=== PATIENT | female | born 1975 | race Caucasian/White ===

== ENCOUNTER 2017-05-14 17:54 | Emergency (ER) | payer OTHER, SELFPAY ==
[2017-05-14] MEDS ORDERED: BABY ASPIRIN 81 MG CHEW PO ONE (18:15)
[2017-05-14] MEDS ORDERED: Pepcid 20 MG VIAL IV ONE ×2 (18:15→18:38)
[2017-05-14] MEDS ORDERED: Vistaril 50 MG/ML IM ONE (18:17)
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
[2017-05-14 18:35] LABS: BASOPHIL % 0.4 % (0.0-0.4); Basophil (Absolute #) 0.03 (0-0.4); Eosinophil % 1.3 % (0.00-5.0); Granulocyte Absolute (ANC) 4.47 (1.4-6.9); Hematocrit 30.3 % (35-47); Hemoglobin 9.6 gm/dl (12.0-16.0); Lymphocyte (Absolute #) 2.63 (1.0-4.6); Lymphocytes % 34.2 % (24.0-44.0); Mean Cell Volume 81.7 fl (78-100); Mean Corpuscular Hgb Concent. 31.7 g/dl (32-36); Mean Platelet Volume 9.8 fl (6-9.5); Monocyte (Absolute #) 0.47 (0.0-1.3); Monocytes % 6.1 % (0.0-12.0); Platelet Count 384 K/mm3 (150-450); Red Blood Count 3.71 M/mm3 (4.1-5.4); Red Cell Distribution Width 20.8 % (11.5-14.0); White Blood Count 7.7 K/mm3 (4.0-10.5)
[2017-05-14] MEDS ORDERED: BABY ASPIRIN 81 MG CHEW ONE (18:37)
[2017-05-14] MEDS ORDERED: VISTARIL 100MG/2ML IM ONE (18:37)
[2017-05-14 18:46] LABS: Mean Corpuscular Hemoglobin 25.8 pg (26-32)
[2017-05-14 18:57] VITALS: BP 132/79; PULSE 80
[2017-05-14 19:00] VITALS: O2SAT 100
[2017-05-14 19:02] LABS: ALBUMIN 3.8 g/dl (3.5-5.0); ALKALINE PHOSPHATASE 115 U/L (38-126); ANION GAP 14.2 MEQ/L (5-15); BILIRUBIN,TOTAL < 0.10 mg/d? (0.2-1.3); BLOOD UREA NITROGEN 9 mg/dl (7-17); CHLORIDE 105 mEq/L (98-107); Calcium 9.1 mg/dL (8.4-10.2); Carbon Dioxide 24 mmol/L (22-30); Glucose 116 mg/dL (74-106); Potassium 3.7 mmol/L (3.5-5.1); SGOT/AST 21 U/L (14-36); SGPT/ALT 19 U/L (0-35); SODIUM 140 mmol/L (137-145); Total Protein 6.4 mg/dl (6.3-8.2)
--- NOTE | 2017-05-14 21:11 | XRAY ---
Indication: Chest pain. Comparison: May 12, 2015. PA/lateral chest again demonstrates normal heart, lungs, and bony thorax.
== END 2017-05-14 19:26 | disposition home or self-care (01) ==
LOC: ED 17:54
DX: R07.9 Chest pain, unspecified (principal); F41.9 Anxiety disorder, unspecified; Z79.01 Long term (current) use of anticoagulants; Z79.899 Other long term (current) drug therapy
CPT/HCPCS: 36000; 36415; 71046; 80053; 84484; 84703; 85025; 93005; 93041; 96372; 96374; 99283; 99284; J3410; A9270-GY

== ENCOUNTER 2017-06-14 16:34 | Emergency (ER) | payer OTHER ==
[2017-06-14 17:02] VITALS: PULSE 64
[2017-06-14] MEDS ORDERED: DEMEROL 50 MG IM ONE (17:14)
[2017-06-14] MEDS ORDERED: Phenergan 25 MG INJ IM ONE (17:15)
[2017-06-14] MEDS ORDERED: Phenergan 25 MG INJ ONE (17:20)
[2017-06-14] MEDS ORDERED: DEMEROL 50 MG ONE (17:21)
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
[2017-06-14 18:12] VITALS: BP 113/61; O2SAT 96
== END 2017-06-14 17:50 | disposition home or self-care (01) ==
LOC: ED 16:34
DX: G43.909 Migraine, unspecified, not intractable, without status migrainosus (principal); Z79.01 Long term (current) use of anticoagulants; Z79.899 Other long term (current) drug therapy
CPT/HCPCS: 96372; 99282; 99284; J2175; J2550

== ENCOUNTER 2017-11-10 23:51 | Emergency (ER) | payer OTHER ==
[2017-11-11] MEDS ORDERED: PERCOCET TABLET 5/325MG PO STA (00:01)
--- NOTE | 2017-11-11 00:04 | ERPHSYRPT ---
- History of Present Illness Time Seen by Provider: 11/11/17 00:02 Source: patient Exam Limitations: no limitations Physician History: 42 y/o female comes to the ER after jamming her right hand and index finger against the door. Pt describes the pain as sharp, constant, 8/10, worse with movement and not relieved by excedrin. Occurred: just prior to arrival Method of Injury: direct blow Quality: constant Severity of Pain-Max: severe Severity of Pain-Current: severe Extremities Pain Location: hand: right, 2nd finger: right Modifying Factors: Improves With: nothing Associated Symptoms: none Allergies/Adverse Reactions: strawberry [[place]] Allergy (Severe, Verified 11/11/17 00:06) Hives swollen throat hydrocodone bitartrate [From Vicodin] Allergy (Mild, Verified 11/11/17 00:06) Vomiting ketorolac tromethamine [From Toradol] Allergy (Mild, Verified 11/11/17 00:06) Hives Penicillins Allergy (Mild, Verified 11/11/17 00:06) pineapple [Pineapple] Allergy (Mild, Verified 11/11/17 00:06) Diarrhea prochlorperazine edisylate [From Compazine] Allergy (Mild, Verified 11/11/17 00: 06) Diarrhea psychosis sumatriptan [From Imitrex] Allergy (Mild, Verified 11/11/17 00:06) Vomiting tramadol HCl [From Ultram] Allergy (Mild, Verified 11/11/17 00:06) Hives oysters Allergy (Severe, Uncoded 11/11/17 00:06) Hives swollen throat Home Medications: Atorvastatin Calcium [Lipitor 20MG Tablet] 20 mg PO 1800 03/27/13 [History] Clopidogrel Bisulfate 75 mg [PLAVIX 75 MG Tablet] 75 mg PO 1800 03/27/13 [ History] Alprazolam 1 mg PO TID 11/13/13 [History] Gabapentin [Neurontin] 1,200 mg PO QHS 02/17/14 [History] Amitriptyline HCl 100 mg PO 1800 08/16/14 [History] Omeprazole 20 MG [Prilosec 20 mg] 20 mg PO 1800 08/16/14 [History] Hx Tetanus, Diphtheria Vaccination/Date Given: Yes Hx Influenza Vaccination/Date Given: Yes Hx Pneumococcal Vaccination/Date Given: No - Review of Systems Constitutional: No Fever, No Chills Eyes: No Symptoms Ears, Nose, & Throat: No Symptoms Respiratory: No Cough, No Dyspnea Cardiac: No Chest Pain, No Edema, No Syncope Abdominal/Gastrointestinal: No Abdominal Pain, No Nausea, No Vomiting, No Diarrhea Genitourinary Symptoms: No Dysuria Musculoskeletal: Joint Pain, Myalgias, No Back Pain, No Neck Pain Skin: No Rash Neurological: No Dizziness, No Focal Weakness, No Sensory Changes Psychological: No Symptoms Endocrine: No Symptoms All Other Systems: Reviewed and Negative - Past Medical History Pertinent Past Medical History: Yes Neurological History: Migraines ENT History: No Pertinent History Cardiac History: Deep Vein Thrombosis Respiratory History: No Pertinent History Endocrine Medical History: No Pertinent History Musculoskeletal History: No Pertinent History GI Medical History: Other History: No Pertinent History Psycho-Social History: Anxiety, Depression Female Reproductive Disorders: Other Other Medical History: peripheral blockage of the L arm, uterine ablasion, anemia, pt reports possibly had a stroke. Acid reflux. - Past Surgical History Past Surgical History: Yes Neuro Surgical History: No Pertinent History Cardiac: No Pertinent History Respiratory: No Pertinent History Gastrointestinal: Cholecystectomy Genitourinary: No Pertinent History Musculoskeletal: Orthopedic Surgery, Other Female Surgical History: Section, Other Other Surgical History: BLOOD CLOT REMOVAL, ABLATION, left foot surgery - Social History Smoking Status: Current every day smoker How long have you smoked: 27 Exposure to second hand smoke: No Drug Use: none Patient Lives Alone: No - Nursing Vital Signs Nursing Vital Signs: Initial Vital Signs Pulse Rate 88 11/10/17 23:58 Respiratory Rate 18 11/10/17 23:58 O2 Sat by Pulse Oximetry 100 11/10/17 23:58 Pain Scale Pain Intensity 8 - Physical Exam General Appearance: alert Eyes, Ears, Nose, Throat Exam: moist mucous membranes Neck Exam: non-tender, supple Cardiovascular/Respiratory Exam: chest non-tender, normal breath sounds, regular rate/rhythm, no respiratory distress Abdominal Exam: non-tender, No guarding Back Exam: normal inspection, No vertebral tenderness Shoulder Exam: normal inspection, non-tender, no evidence of injury Elbow/Forearm Exam: normal inspection, non-tender, no evidence of injury Wrist Exam: normal inspection, non-tender, no evidence of injury Hand Exam: limited ROM, swelling Neuro/Tendon Exam: normal sensation, normal motor functions Mental Status Exam: alert, oriented x 3, cooperative Skin Exam: normal color, warm, dry - Course Nursing assessment & vital signs reviewed: Yes Ordered Tests: Active Orders 24 hr Category Date Time Status HAND (MINIMUM 3 VIEWS) Stat Exams 11/11/17 00:24 Taken Medication Summary Discontinued Medications Generic Name Dose Route Start Last Admin Trade Name Isaac PRN Reason Stop Dose Admin Oxycodone/Acetaminophen 1 tab 11/11/17 00:01 11/11/17 00:07 Percocet Tablet 5/325mg PO 11/11/17 00:02 1 tab STAT STA Administration Oxycodone/Acetaminophen Confirm 11/11/17 00:06 Percocet Tablet 5/325mg Administered 11/11/17 00:07 Dose 1 tab .ROUTE .STSophiris Bio-MED ONE - Progress Progress: improved Progress Note: 11/11/17 00:35 The hand x ray does not show any fracture/ Pt will be d/c home. - Departure Time of Disposition: 00:35 Departure Disposition: Home Clinical Impression: Hand sprain Qualifiers: Encounter type: initial encounter Laterality: right Qualified Code(s): S63.91XA - Sprain of unspecified part of right wrist and hand, initial encounter Condition: Stable Critical Care Time: No Referrals: PRAVEENA KHAN [Primary Care Provider] - Instructions: Finger Sprain (DC) Additional Instructions: Follow up with your primary care doctor for any additional pain medications.
[2017-11-11] MEDS ORDERED: PERCOCET TABLET 5/325MG ONE (00:06)
[2017-11-11 01:00] VITALS: BP 110/68; PULSE 76; O2SAT 98
--- NOTE | 2017-11-11 07:23 | XRAY ---
Indication: Pain following injury. Comparison: None 3 views of the right hand obtained. No bony, articular, or soft tissue abnormalities.
== END 2017-11-11 00:58 | disposition home or self-care (01) ==
LOC: ED 23:51
DX: S63.91XA Sprain of unspecified part of right wrist and hand, initial encounter (principal); S63.610A Unspecified sprain of right index finger, initial encounter; W22.09XA Striking against other stationary object, initial encounter; Z79.01 Long term (current) use of anticoagulants; Z79.899 Other long term (current) drug therapy
CPT/HCPCS: 73130; 99284; A9270-GY

== ENCOUNTER 2017-11-11 18:11 | Emergency (ER) | payer OTHER ==
[2017-11-11 18:33] VITALS: BP 0/0; PULSE 87; O2SAT 99
--- NOTE | 2017-11-11 18:38 | ERPHSYRPT ---
- History of Present Illness Time Seen by Provider: 11/11/17 18:33 Source: patient Exam Limitations: no limitations Patient Subjective Stated Complaint: states fell off porch at 1030 today.pain to right elbow was seen at this ER yesterday AM for another injury,.. splint on right index finger from previous fall. Triage Nursing Assessment: alert and oriented.. pain in right elbow after fgalling off pirch at 1030 today.. pain and swelling.. pain with movement. noted bruising at the elbow.. + radial pulse present. denies any other injuries. Physician History: 42-year-old white female with history of migraines, DVT, anxiety depression, peripheral blockage of the left arm, anemia, CVA, GERD. Patient arrives with complaint of pain in her right elbow since 10:30 today. She states she fell off her front porch. Patient apparently was seen earlier today at midnight with complaint of pain in her right hand and index finger after jamming it into a door. X-rays of the right hand were negative patient does have a splint placed on her right index finger. Past medical history includes migraines, DVT, anxiety, depression, peripheral blockage of the left arm, uterine ablation, anemia, possible CVA, GERD Past surgical history includes cholecystectomy, orthopedic surgery, , blood clot removal, uterine ablation, left foot surgery Social history includes tobacco use Occurred: this morning (10:30 AM) Method of Injury: fell (fell off her front porch) Quality: aching Severity of Pain-Max: moderate Severity of Pain-Current: mild Extremities Pain Location: elbow: right Modifying Factors: Improves With: nothing Associated Symptoms: none Allergies/Adverse Reactions: strawberry [[place]] Allergy (Severe, Verified 11/11/17 18:36) Hives swollen throat hydrocodone bitartrate [From Vicodin] Allergy (Mild, Verified 11/11/17 18:36) Vomiting ketorolac tromethamine [From Toradol] Allergy (Mild, Verified 11/11/17 18:36) Hives Penicillins Allergy (Mild, Verified 11/11/17 18:36) pineapple [Pineapple] Allergy (Mild, Verified 11/11/17 18:36) Diarrhea prochlorperazine edisylate [From Compazine] Allergy (Mild, Verified 11/11/17 18: 36) Diarrhea psychosis sumatriptan [From Imitrex] Allergy (Mild, Verified 11/11/17 18:36) Vomiting tramadol HCl [From Ultram] Allergy (Mild, Verified 11/11/17 18:36) Hives oysters Allergy (Severe, Uncoded 11/11/17 18:36) Hives swollen throat Home Medications: Atorvastatin Calcium [Lipitor 20MG Tablet] 20 mg PO 1800 03/27/13 [History] Clopidogrel Bisulfate 75 mg [PLAVIX 75 MG Tablet] 75 mg PO 1800 03/27/13 [ History] Alprazolam 1 mg PO TID 11/13/13 [History] Gabapentin [Neurontin] 1,200 mg PO QHS 02/17/14 [History] Amitriptyline HCl 100 mg PO 1800 08/16/14 [History] Omeprazole 20 MG [Prilosec 20 mg] 20 mg PO 1800 08/16/14 [History] Hx Tetanus, Diphtheria Vaccination/Date Given: Yes Hx Influenza Vaccination/Date Given: Yes Hx Pneumococcal Vaccination/Date Given: No - Review of Systems Constitutional: No Fever, No Chills Eyes: No Symptoms Ears, Nose, & Throat: No Symptoms Respiratory: No Cough, No Dyspnea Cardiac: No Chest Pain, No Edema, No Syncope Abdominal/Gastrointestinal: No Abdominal Pain, No Nausea, No Vomiting, No Diarrhea Genitourinary Symptoms: No Dysuria Musculoskeletal: Other (right elbow pain) Skin: No Rash Neurological: No Dizziness, No Focal Weakness, No Sensory Changes Psychological: No Symptoms Endocrine: No Symptoms All Other Systems: Reviewed and Negative - Past Medical History Pertinent Past Medical History: Yes Neurological History: Migraines ENT History: No Pertinent History Cardiac History: Deep Vein Thrombosis Respiratory History: No Pertinent History Endocrine Medical History: No Pertinent History Musculoskeletal History: No Pertinent History GI Medical History: Other History: No Pertinent History Psycho-Social History: Anxiety, Depression Female Reproductive Disorders: Other Other Medical History: peripheral blockage of the L arm, uterine ablasion, anemia, pt reports possibly had a stroke. Acid reflux. - Past Surgical History Past Surgical History: Yes Neuro Surgical History: No Pertinent History Cardiac: No Pertinent History Respiratory: No Pertinent History Gastrointestinal: Cholecystectomy Genitourinary: No Pertinent History Musculoskeletal: Orthopedic Surgery, Other Female Surgical History: Section, Other Other Surgical History: BLOOD CLOT REMOVAL, ABLATION, left foot surgery - Social History Smoking Status: Current every day smoker How long have you smoked: 27 Exposure to second hand smoke: No Drug Use: marijuana Patient Lives Alone: No - Female History Hx Now: No - Nursing Vital Signs Nursing Vital Signs: Initial Vital Signs Temperature 98 F 11/11/17 18:23 Pulse Rate 87 11/11/17 18:23 Respiratory Rate 18 11/11/17 18:23 Blood Pressure 0/0 11/11/17 18:23 O2 Sat by Pulse Oximetry 99 11/11/17 18:23 Pain Scale Pain Intensity 6 - Physical Exam General Appearance: mild distress Eyes, Ears, Nose, Throat Exam: moist mucous membranes Neck Exam: non-tender, supple Cardiovascular/Respiratory Exam: chest non-tender, normal breath sounds, regular rate/rhythm, no respiratory distress Abdominal Exam: non-tender, No guarding Back Exam: normal inspection, No vertebral tenderness Shoulder Exam: normal inspection, non-tender, no evidence of injury, normal ROM Elbow/Forearm Exam: No normal inspection (mild edema right elbow over olecranon tender with palpation over olecranon), No normal ROM (decreased range of motion right elbow secondary to pain) Wrist Exam: normal inspection, non-tender, no evidence of injury, normal ROM Hand Exam: normal inspection, non-tender, no evidence of injury, normal ROM Neuro/Tendon Exam: normal sensation, normal motor functions Mental Status Exam: alert, oriented x 3, cooperative Skin Exam: normal color, warm, dry SpO2 Interpretation: normal (99%) SpO2: 99 Oxygen Delivery: Room Air - Course Nursing assessment & vital signs reviewed: Yes - Radiology Exams Right Elbow X-ray Interpretation: Interpreted by me, Negative, No Fracture, No Subluxation Ordered Tests: Active Orders 24 hr Category Date Time Status Sling Application STAT Care 11/11/17 18:53 Active ELBOW (MINIMUM 3 VIEWS) Stat Exams 11/11/17 18:33 Taken - Progress Progress: improved Progress Note: 11/11/17 18:39 42-year-old white female arrives with complaint of pain in her right elbow she states that she fell around 10:30 AM this morning. Interestingly enough patient apparently had come in at around midnight with complaint of right hand pain x-rays of her right hand were negative she did have a splint placed on her right index finger. I've checked the patient's inspect report I cannot find any current prescriptions however. Hold patient summaries show a history of substance abuse. Will go ahead and obtain an x-ray of the patient's right elbow. 11/11/17 18:57 x-ray right elbow negative fracture negative subluxation. Will place a sling on patient's right arm. Go ahead and give patient Percocet 5/325 #2 tablets to go home. She is to take the 6 hours apart as needed for pain. She can switch to Tylenol thereafter. She is she is to place cold packs on the right elbow 24-48 hours. - Departure Time of Disposition: 18:58 Departure Disposition: Home Clinical Impression: Contusion of right elbow Qualifiers: Encounter type: initial encounter Qualified Code(s): S50.01XA - Contusion of right elbow, initial encounter Condition: Fair Critical Care Time: No Referrals: PRAVEENA KHAN [Primary Care Provider] - Additional Instructions: Return home. Ice to right elbow 24-48 hours. Percocet as directed then switch to Tylenol every 4 hours as needed for pain. You may you wear your sling for 48-72 hours. Longer if pain persists but he will need follow-up with your family doctor. Follow-up with your family doctor if symptoms are worse, no better in 48-72 hours, or persist longer than one week. Return for acute distress or for severe symptoms.
[2017-11-11] MEDS ORDERED: PERCOCET TABLET 5/325MG PO STA (18:56)
[2017-11-11] MEDS ORDERED: PERCOCET TABLET 5/325MG ONE (19:01)
--- NOTE | 2017-11-11 21:42 | XRAY ---
Indication: Pain and limited range of motion following fall. Comparison: October 03, 2011. 3 views of the right elbow obtained. Again no bony, articular, or soft tissue abnormalities.
== END 2017-11-11 19:10 | disposition home or self-care (01) ==
LOC: ED 18:11
DX: S50.01XA Contusion of right elbow, initial encounter (principal); M25.521 Pain in right elbow; W17.89XA Other fall from one level to another, initial encounter; Y92.008 Other place in unspecified non-institutional (private) residence as the place of occurrence of the external cause; Z79.01 Long term (current) use of anticoagulants; Z79.899 Other long term (current) drug therapy
CPT/HCPCS: 73080; 99283; A9270-GY

== ENCOUNTER 2017-12-29 23:27 | Emergency (ER) | payer OTHER ==
[2017-12-29 23:39] VITALS: O2SAT 96
[2017-12-30] MEDS ORDERED: TYLENOL 325 MG PO STA (00:03)
[2017-12-30] MEDS ORDERED: TYLENOL 325 MG ONE (00:05)
[2017-12-30] MEDS ORDERED: Norflex 60 MG/2 ML IM ONE (00:07)
[2017-12-30] MEDS ORDERED: Norflex 60 MG/2 ML ONE (00:11)
--- NOTE | 2017-12-30 00:18 | ERPHSYRPT ---
- History of Present Illness Time Seen by Provider: 12/29/17 23:50 Source: patient Patient Subjective Stated Complaint: Left arm pain Triage Nursing Assessment: Patient brought into ER per EMS and strectcher and transferred over to bed with staff asssit of 2. Patient A+O X 3. Patient states she fell on metal camper steps about 0700. Patient states pain is 10/10 to left arm/shoulder. Patient can bend arm, but can't rotate shoulder. Patient has two faded yellow/light purple bruising to back. Physician History: PATIENT WITH A HISTORY OF DVT QUESTIONABLE TIA, DEPRESSION, STATES AT 7AM THIS MORNING SHE FELL DOWN [employer] STEPS SUSTAINING INJURY TO HER LEFT SHOULDER AND SHOULDER BLADE. DENIES ASSOCIATED HEAD, NECK OR BACK INJURY. Occurred: this morning (AT 7AM) Reason for Fall: tripped Injuries/Pain Location: upper extremity Loss of Consciousness: no loss of consciousness Quality: stabbing, throbbing Severity of Pain-Max: moderate Severity of Pain-Current: moderate Modifying Factors: Improves With: movement Allergies/Adverse Reactions: strawberry [[place]] Allergy (Severe, Verified 12/29/17 23:39) Hives swollen throat hydrocodone bitartrate [From Vicodin] Allergy (Mild, Verified 12/29/17 23:39) Vomiting ketorolac tromethamine [From Toradol] Allergy (Mild, Verified 12/29/17 23:39) Hives Penicillins Allergy (Mild, Verified 12/29/17 23:39) pineapple [Pineapple] Allergy (Mild, Verified 12/29/17 23:39) Diarrhea prochlorperazine edisylate [From Compazine] Allergy (Mild, Verified 12/29/17 23: 39) Diarrhea psychosis sumatriptan [From Imitrex] Allergy (Mild, Verified 12/29/17 23:39) Vomiting tramadol HCl [From Ultram] Allergy (Mild, Verified 12/29/17 23:39) Hives oysters Allergy (Severe, Uncoded 12/29/17 23:39) Hives swollen throat Home Medications: Atorvastatin Calcium [Lipitor 20MG Tablet] 20 mg PO 1800 03/27/13 [History] Clopidogrel Bisulfate 75 mg [PLAVIX 75 MG Tablet] 75 mg PO 1800 03/27/13 [ History] Gabapentin [Neurontin] 1,200 mg PO QHS 02/17/14 [History] Omeprazole 20 MG [Prilosec 20 mg] 20 mg PO 1800 08/16/14 [History] Hx Tetanus, Diphtheria Vaccination/Date Given: Yes Hx Influenza Vaccination/Date Given: Yes Hx Pneumococcal Vaccination/Date Given: No Immunizations Up to Date: No - Review of Systems Constitutional: No Fever, No Chills Eyes: No Symptoms Ears, Nose, & Throat: No Symptoms Respiratory: No Cough, No Dyspnea Cardiac: No Chest Pain, No Edema, No Syncope Abdominal/Gastrointestinal: No Abdominal Pain, No Nausea, No Vomiting, No Diarrhea Genitourinary Symptoms: No Dysuria Musculoskeletal: Injury, Joint Pain, Joint Swelling, No Back Pain, No Neck Pain Skin: No Rash Neurological: No Dizziness, No Focal Weakness, No Sensory Changes Psychological: No Symptoms Endocrine: No Symptoms All Other Systems: Reviewed and Negative - Past Medical History Pertinent Past Medical History: Yes Neurological History: Migraines ENT History: No Pertinent History Cardiac History: Deep Vein Thrombosis Respiratory History: No Pertinent History Endocrine Medical History: No Pertinent History Musculoskeletal History: No Pertinent History GI Medical History: Other History: No Pertinent History Psycho-Social History: Anxiety, Depression Female Reproductive Disorders: Other Other Medical History: peripheral blockage of the L arm, uterine ablasion, anemia, pt reports possibly had a stroke. Acid reflux. - Past Surgical History Past Surgical History: Yes Neuro Surgical History: No Pertinent History Cardiac: No Pertinent History Respiratory: No Pertinent History Gastrointestinal: Cholecystectomy Genitourinary: No Pertinent History Musculoskeletal: Orthopedic Surgery, Other Female Surgical History: Section, Other Other Surgical History: BLOOD CLOT REMOVAL, ABLATION, left foot surgery - Social History Smoking Status: Current every day smoker How long have you smoked: 27 Exposure to second hand smoke: No Drug Use: marijuana Patient Lives Alone: No - Female History Hx Last Menstrual Period: 9 years ago Hx Now: No - Nursing Vital Signs Nursing Vital Signs: Initial Vital Signs Temperature 98.8 F 12/29/17 23:31 Pulse Rate 108 H 12/29/17 23:31 Respiratory Rate 18 12/29/17 23:31 Blood Pressure 121/74 12/29/17 23:31 O2 Sat by Pulse Oximetry 96 12/29/17 23:31 Pain Scale Pain Intensity 10 - Ora Coma Score Best Eye Response (Ora): (4) open spontaneously Best Verbal Response ([place]): (5) oriented Best Motor Response ([place]): (6) obeys commands Ora Total: 15 - Physical Exam General Appearance: mild distress Head Injury: no evidence of injury Eye Exam: PERRL/EOMI ENT Exam: airway nml Neck Exam: supple, trachea midline, full range of motion, other (NO POST CERVICAL SPINAL TENDERNESS) Respiratory/Chest Exam: normal breath sounds, other (THERE IS AN AREA MEASURING 4CM X 5CM YELLOW ECCHYMOSIS OVER LEFT POSTERIOR CHEST WALL 6TH TO 9TH RIBS, NO CREPITUS) Cardiovascular Exam: normal heart sounds, regular rate/rhythm Back Exam: normal inspection, vertebral tenderness (TENDERNESS T-2 TO T-8,), decreased range of motion Extremity Exam: normal inspection, limited range of motion (LEFT SHOULDER ANTERIOR LATERAL TENDERNESS, NO ECCHYMOSIS OR CREPITUS, TENDERNESS MID LEFT SCAPULA, NO CREPITUS OR ECCHYMOSIS), pain with movement Peripheral Pulses: carotid (R): 2+, carotid (L): 2+, femoral (R): 2+, femoral (L ): 2+, dorsalis-pedis (R): 2+, dorsalis-pedis (L): 2+ Neurologic Exam: alert, normal mood/affect Skin Exam: normal color SpO2: 96 Oxygen Delivery: Room Air - Radiology Exams Left Shoulder X-ray Interpretation: Interpreted by me, Negative, No Fracture (NO DISLOCATION) T-Spine X-ray Interpretation: Interpreted by me, Negative, No Fracture Chest X-ray Interpretation: Interpreted by me, Negative, No Infiltrates Ordered Tests: Active Orders 24 hr Category Date Time Status Sling Application STAT Care 12/30/17 00:08 Active CHEST 2 VIEWS (PA AND LAT) Stat Exams 12/30/17 00:05 Taken SHOULDER Stat Exams 12/30/17 00:04 Taken THORACIC SPINE (AP,LAT,SWIMM) Stat Exams 12/30/17 00:06 Taken Medication Summary Discontinued Medications Generic Name Dose Route Start Last Admin Trade Name Freq PRN Reason Stop Dose Admin Acetaminophen 650 mg 12/30/17 00:03 12/30/17 00:06 Tylenol 325 Mg PO 12/30/17 00:04 650 mg STAT STA Administration Acetaminophen Confirm 12/30/17 00:05 Tylenol 325 Mg Administered 12/30/17 00:06 Dose 650 mg .ROUTE .STK-MED ONE Orphenadrine Citrate 60 mg 12/30/17 00:07 12/30/17 00:11 Norflex 60 Mg/2 Ml IM 12/30/17 00:08 60 mg STAT ONE Administration Orphenadrine Citrate Confirm 12/30/17 00:11 Norflex 60 Mg/2 Ml Administered 12/30/17 00:12 Dose 60 mg .ROUTE .STK-MED ONE - Progress Progress: improved, pain not gone completely Progress Note: 12/30/17 00:23 PATIENT HAS MULTIPLE ALLERGIES, ADMINISTERED TYLENOL 650MG ORALLY, NORFLEX 60MG IM 12/30/17 01:30 APPLICATION LEFT ARM SLING Counseled pt/family regarding: diagnosis, need for follow-up - Departure Time of Disposition: 01:45 Departure Disposition: Home Clinical Impression: LEFT SHOULDER CONTUSION/STRAIN, ACUTE LUMBAR STRAIN Condition: Stable Critical Care Time: No Referrals: PRAVEENA KHAN [Primary Care Provider] - Additional Instructions: WEAR YOUR LEFT ARM SLING FOR COMFORT. PERCOGESIC 1 TABLET EVERY 4 HOURS NEEDED FOR PAIN. NORFLEX 100MG TWICE DAILY FOR 5 DAYS FOR MUSCLE SPASMS. FOLLOWUP WITH DR KHAN EARLY NEXT WEEK. Prescriptions: Acetaminophen/Diphenhydramine [Percogesic Extra Str Caplet] 1 each PO Q6HPRN PRN #20 tablet PRN Reason: Pain Orphenadrine Citrate 100 mg [Norflex 100 MG Tablet] 100 mg PO BID #10 tab
[2017-12-30 00:21] VITALS: BP 113/63; PULSE 63
--- NOTE | 2017-12-30 08:45 | XRAY ---
Indication: Upper back pain and bruising following fall. Comparison: None. Frontal/lateral thoracic spine demonstrates 12 typical rib-bearing thoracic vertebral segments in normal alignment with vertebral body heights and disc spaces maintained. No bony, articular, or soft tissue abnormalities.
--- NOTE | 2017-12-30 08:45 | XRAY ---
Indication: Upper back pain and bruising following fall. Comparison: May 14, 2017. PA/lateral chest again demonstrates normal heart, lungs, and bony thorax.
--- NOTE | 2017-12-30 08:45 | XRAY ---
Indication: Upper back pain and bruising following fall. Comparison: None. 3 views of the left shoulder obtained. No bony, articular, or soft tissue abnormalities.
== END 2017-12-30 01:35 | disposition home or self-care (01) ==
LOC: ED 23:27
DX: S46.912A Strain of unspecified muscle, fascia and tendon at shoulder and upper arm level, left arm, initial encounter (principal); S40.012A Contusion of left shoulder, initial encounter; S39.012A Strain of muscle, fascia and tendon of lower back, initial encounter; S20.222A Contusion of left back wall of thorax, initial encounter; W10.9XXA Fall (on) (from) unspecified stairs and steps, initial encounter; Y93.9 Activity, unspecified; Y92.833 Campsite as the place of occurrence of the external cause; Z79.01 Long term (current) use of anticoagulants; Z79.899 Other long term (current) drug therapy
CPT/HCPCS: 71046; 72072; 73030; 96372; 99284; J2360; A9270-GY

== ENCOUNTER 2019-05-03 11:44 | Emergency (ER) | payer OTHER ==
--- NOTE | 2019-05-03 11:53 | ERPHSYRPT ---
- History of Present Illness Time Seen by Provider: 05/03/19 11:53 Source: patient Exam Limitations: no limitations Physician History: This is a 43-year-old right handed white female who presents 1 day after injuring her left hand. Patient was moving firewood into a stove and the left hand was mildly crushed between 2 logs. The patient noticed bruising and swelling today with associated pain. Patient specifically told to nurses that she did not want any pain medicine at all just wanted x-ray and possible wrapping of hand if indicated. Occurred: yesterday Method of Injury: direct blow Quality: constant, aching Severity of Pain-Max: mild Severity of Pain-Current: mild Extremities Pain Location: hand: left Associated Symptoms: none Allergies/Adverse Reactions: strawberry [[place]] Allergy (Severe, Verified 05/03/19 11:58) Hives swollen throat hydrocodone bitartrate [From Vicodin] Allergy (Mild, Verified 05/03/19 11:58) Vomiting ketorolac tromethamine [From Toradol] Allergy (Mild, Verified 05/03/19 11:58) Hives Penicillins Allergy (Mild, Verified 05/03/19 11:58) pineapple [Pineapple] Allergy (Mild, Verified 05/03/19 11:58) Diarrhea prochlorperazine edisylate [From Compazine] Allergy (Mild, Verified 05/03/19 11: 58) Diarrhea psychosis sumatriptan [From Imitrex] Allergy (Mild, Verified 05/03/19 11:58) Vomiting tramadol HCl [From Ultram] Allergy (Mild, Verified 05/03/19 11:58) Hives oysters Allergy (Severe, Uncoded 05/03/19 11:58) Hives swollen throat Home Medications: No Reportable Medications [No Reported Medications] 05/03/19 [History] Hx Tetanus, Diphtheria Vaccination/Date Given: Yes Hx Influenza Vaccination/Date Given: Yes Hx Pneumococcal Vaccination/Date Given: No - Review of Systems Constitutional: No Symptoms Eyes: No Symptoms Ears, Nose, & Throat: No Symptoms Respiratory: No Symptoms Cardiac: No Symptoms Abdominal/Gastrointestinal: No Symptoms Genitourinary Symptoms: No Symptoms Musculoskeletal: Injury (Left hand) Skin: No Symptoms Neurological: No Symptoms Psychological: No Symptoms Endocrine: No Symptoms Hematologic/Lymphatic: No Symptoms Immunological/Allergic: No Symptoms All Other Systems: Reviewed and Negative - Past Medical History Pertinent Past Medical History: Yes Neurological History: Migraines ENT History: No Pertinent History Cardiac History: Deep Vein Thrombosis Respiratory History: No Pertinent History Endocrine Medical History: No Pertinent History Musculoskeletal History: No Pertinent History GI Medical History: Other History: No Pertinent History Psycho-Social History: Anxiety, Depression Female Reproductive Disorders: Other Other Medical History: peripheral blockage of the L arm, uterine ablasion, anemia, pt reports possibly had a stroke. Acid reflux. - Past Surgical History Past Surgical History: Yes Neuro Surgical History: No Pertinent History Cardiac: No Pertinent History Respiratory: No Pertinent History Gastrointestinal: Cholecystectomy Genitourinary: No Pertinent History Musculoskeletal: Orthopedic Surgery, Other Female Surgical History: Section, Other Other Surgical History: BLOOD CLOT REMOVAL, ABLATION, left foot surgery - Social History Smoking Status: Current every day smoker How long have you smoked: 27 Exposure to second hand smoke: No Drug Use: marijuana Patient Lives Alone: No - Nursing Vital Signs Nursing Vital Signs: Initial Vital Signs Temperature 98.0 F 05/03/19 11:47 Pulse Rate 70 05/03/19 11:47 Respiratory Rate 20 05/03/19 11:47 Blood Pressure 108/66 05/03/19 11:47 O2 Sat by Pulse Oximetry 100 05/03/19 11:47 Pain Scale Pain Intensity 8 - Physical Exam General Appearance: no apparent distress, alert, anxiety Eyes, Ears, Nose, Throat Exam: normal ENT inspection, moist mucous membranes Neck Exam: normal inspection, non-tender, supple, full range of motion Cardiovascular/Respiratory Exam: chest non-tender Abdominal Exam: non-tender Back Exam: normal inspection, normal range of motion, No CVA tenderness, No vertebral tenderness Shoulder Exam: normal inspection, non-tender, no evidence of injury, normal ROM Elbow/Forearm Exam: normal inspection, non-tender, no evidence of injury, normal ROM Wrist Exam: normal inspection, non-tender, no evidence of injury, normal ROM Hand Exam: normal ROM, ecchymosis, soft tissue tenderness, swelling (There is mild ecchymosis, soft tissue tenderness and swelling in the area of the patient' s left thumb and thenar eminence. Patient is neurovascularly intact and her tendon function is also intact) Neuro/Tendon Exam: normal sensation, normal motor functions, normal tendon functions, responds to pain, no evidence tendon injury Mental Status Exam: alert, oriented x 3, cooperative Skin Exam: ecchymosis SpO2 Interpretation: normal O2 Delivery: Room Air Ordered Tests: Active Orders 24 hr Category Date Time Status HAND (MINIMUM 3 VIEWS) Stat Exams 05/03/19 11:54 Taken - Progress Progress: unchanged Progress Note: 05/03/19 12:45 X-ray of left hand reveals no acute fracture or dislocation Counseled pt/family regarding: diagnosis, need for follow-up, rad results - Departure Departure Disposition: Home Clinical Impression: Contusion of left hand Condition: Stable Critical Care Time: No Referrals: PRAVEENA KHAN [Primary Care Provider] - Additional Instructions: Place left hand into ice bath 3 times a day. Use Tylenol and ibuprofen (if you can tolerate and are not allergic to). Follow-up with your primary care physician for persistent symptoms
[2019-05-03 11:57] VITALS: PULSE 70; O2SAT 100
--- NOTE | 2019-05-03 12:49 | XRAY ---
Exam: 3 views of the left hand from 05/03/2019. Comparison: 3 views of the opposite right hand from 11/11/2017. Indication: Crush injury between longus. Findings: AP, oblique, and lateral radiographs of the left hand were obtained. I see no acute fracture or dislocation. There is some mild bony overlap of the fourth and fifth fingers on the lateral image. There is some soft tissue prominence overlying the ulnar aspect of the PIP joint of the left fourth finger, and to a lesser extent, the same site within the left third finger. No radiopaque soft tissue foreign body is seen. The joint spaces appear unremarkable. A tiny intraosseous cyst is seen within the ulnar aspect of the lesser multangular bone on AP image. This is incidental. Impression: 1. No acute left hand fracture or dislocation is seen. 2. I note some soft tissue prominence about the ulnar aspect of the PIP joint of the left fourth finger, and to a lesser extent, the same level within the left third finger. No radiopaque soft tissue foreign body is seen. Correlate clinically.
[2019-05-03 12:52] VITALS: BP 107/73
== END 2019-05-03 13:03 | disposition home or self-care (01) ==
LOC: ED 11:44
DX: S60.222A Contusion of left hand, initial encounter (principal); W23.1XXA Caught, crushed, jammed, or pinched between stationary objects, initial encounter; W22.8XXA Striking against or struck by other objects, initial encounter; Y93.89 Activity, other specified; Y92.89 Other specified places as the place of occurrence of the external cause; F41.9 Anxiety disorder, unspecified
CPT/HCPCS: 73130; 99283

== ENCOUNTER 2019-05-09 19:48 | Emergency (ER) | payer OTHER ==
[2019-05-09 20:15] VITALS: O2SAT 99
[2019-05-09] MEDS ORDERED: ZOFRAN ODT 4 MG ONE (20:32)
[2019-05-09] MEDS ORDERED: PHENERGAN 25 MG ONE (20:34)
[2019-05-09] MEDS: ZOFRAN ODT 4 MG PO ONE (20:38)
[2019-05-09] MEDS: PHENERGAN 25 MG PO ONE (20:40)
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
[2019-05-09] MEDS ORDERED: BACIGUENT PACKET ONE (21:06)
[2019-05-09] MEDS ORDERED: Hydromorphone 1 mg/ml Ampule ONE (21:07)
[2019-05-09] MEDS: Hydromorphone 1 mg/ml Ampule IM ONE (21:09)
[2019-05-09] MEDS: BACIGUENT PACKET TP ONE (21:17)
[2019-05-09 21:28] VITALS: BP 114/64; PULSE 87
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
== END 2019-05-09 21:20 | disposition home or self-care (01) ==
LOC: ED 19:48
DX: S00.83XA Contusion of other part of head, initial encounter (principal); W20.8XXA Other cause of strike by thrown, projected or falling object, initial encounter; G43.901 Migraine, unspecified, not intractable, with status migrainosus; R11.2 Nausea with vomiting, unspecified
CPT/HCPCS: 70450; 96372; 99284; J1170; Q0162; A9270-GY

== ENCOUNTER 2019-12-22 18:22 | Emergency (ER) | payer OTHER ==
[2019-12-22 18:40] VITALS: BP 101/51; PULSE 92; O2SAT 98
[2019-12-22] MEDS ORDERED: Rocephin 1000 MG INJ IM ONE (18:50)
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
[2019-12-22] MEDS ORDERED: Phenergan 25 MG INJ IM ONE (18:56)
[2019-12-22] MEDS ORDERED: Rocephin 1000 MG INJ ONE (19:03)
[2019-12-22] MEDS ORDERED: XYLOCAINE 1% HCL 20 ML MDV ONE (19:03)
[2019-12-22] MEDS ORDERED: Phenergan 25 MG INJ ONE (19:03)
== END 2019-12-22 19:28 | disposition home or self-care (01) ==
LOC: ED 18:22
DX: H65.112 Acute and subacute allergic otitis media (mucoid) (sanguinous) (serous), left ear (principal)
CPT/HCPCS: 96372; 99284; J0696; J2550

== ENCOUNTER 2020-01-21 23:13 | Emergency (ER) | payer OTHER ==
[2020-01-21] MEDS ORDERED: Sodium Chloride 0.9% 1000 ML 1,000 ML IV STA (23:15)
[2020-01-21 23:17] VITALS: O2SAT 100
[2020-01-21] MEDS ORDERED: Inapsine 5 MG/2 ML IV ONE (23:25)
--- NOTE | 2020-01-21 23:33 | ERPHSYRPT ---
- History of Present Illness Time Seen by Provider: 01/21/20 23:20 Source: patient Patient Subjective Stated Complaint: pt c/o RUQ pain, non radiating Triage Nursing Assessment: pt c/o RUQ pain, non radiating, denies tenderness on palpation. Pt does not have a gallbladder but does still have appendix. Abd soft with active bs x4 quad, nontender. Physician History: Patient is a 44-year-old female presents to our ED with complaints of right up per quadrant pain. Pain started at approximately 10 PM this evening. Patient has a history of cholecystectomy. Patient denies trauma. No fever. No nausea or vomiting. No diarrhea. Symptoms are mild to moderate in intensity. No specific worsening or improving factors. Patient took a Tylenol with codeine prior to arrival and states that it has not helped her pain. Patient has multiple medicine allergies including Carl[place] and narcotics. Patient is also allergic to NSAIDs. Patient voices no other complaints or concerns at this time. Timing/Duration: today Severity: moderate Modifying Factors: Improves With: nothing. Worsens With: eating, movement Associated Symptoms: denies symptoms, No shortness of breath, No diaphoresis, No chest pain, No headaches, No syncope, No seizure Allergies/Adverse Reactions: strawberry [Anderson] Allergy (Severe, Verified 01/21/20 23:25) Hives swollen throat hydrocodone bitartrate [From Vicodin] Allergy (Mild, Verified 01/21/20 23:25) Vomiting ketorolac tromethamine [From Toradol] Allergy (Mild, Verified 01/21/20 23:25) Hives Penicillins Allergy (Mild, Verified 01/21/20 23:25) pineapple [Pineapple] Allergy (Mild, Verified 01/21/20 23:25) Diarrhea prochlorperazine edisylate [From Compazine] Allergy (Mild, Verified 01/21/20 23:25) Diarrhea psychosis sumatriptan [From Imitrex] Allergy (Mild, Verified 01/21/20 23:25) Vomiting tramadol HCl [From Ultram] Allergy (Mild, Verified 01/21/20 23:25) Hives oysters Allergy (Severe, Uncoded 01/21/20 23:25) Hives swollen throat Home Medications: No Reportable Medications [No Reported Medications] 01/21/20 [History] Hx Tetanus, Diphtheria Vaccination/Date Given: Yes Hx Influenza Vaccination/Date Given: No Hx Pneumococcal Vaccination/Date Given: No Immunizations Up to Date: Yes Travel Risk - International Travel Have you traveled outside of the country in past 3 weeks: No - Coronavirus Screening Are you exhibiting any of the following symptoms?: Yes Symptoms: Vomiting/Diarrhea Close contact with a COVID-19 positive Pt in past 14-21 Days: No - Review of Systems Constitutional: No Symptoms, No Fever, No Chills Eyes: No Symptoms Ears, Nose, & Throat: No Symptoms Respiratory: No Symptoms, No Cough, No Dyspnea Cardiac: No Symptoms, No Chest Pain, No Edema, No Syncope Abdominal/Gastrointestinal: No Symptoms, No Abdominal Pain, No Nausea, No Vomiting, No Diarrhea Genitourinary Symptoms: No Symptoms, No Dysuria Musculoskeletal: No Symptoms, No Back Pain, No Neck Pain Skin: No Symptoms, No Rash Neurological: No Symptoms, No Dizziness, No Focal Weakness, No Sensory Changes Psychological: No Symptoms Endocrine: No Symptoms Hematologic/Lymphatic: No Symptoms Immunological/Allergic: No Symptoms All Other Systems: Reviewed and Negative - Past Medical History Pertinent Past Medical History: Yes Neurological History: Migraines ENT History: No Pertinent History Cardiac History: Deep Vein Thrombosis Respiratory History: No Pertinent History Endocrine Medical History: No Pertinent History Musculoskeletal History: No Pertinent History GI Medical History: GERD, Other History: No Pertinent History Psycho-Social History: Anxiety, Depression Female Reproductive Disorders: Other Other Medical History: peripheral blockage of the L arm, uterine ablasion, anemia, pt reports possibly had a stroke. Acid reflux. - Past Surgical History Past Surgical History: Yes Neuro Surgical History: No Pertinent History Cardiac: No Pertinent History Respiratory: No Pertinent History Gastrointestinal: Cholecystectomy Genitourinary: No Pertinent History Musculoskeletal: Orthopedic Surgery, Other Female Surgical History: Section, Other Other Surgical History: BLOOD CLOT REMOVAL, ABLATION, left foot surgery - Social History Smoking Status: Current every day smoker How long have you smoked: 31 yrs Exposure to second hand smoke: Yes Drug Use: marijuana Patient Lives Alone: No - Female History Hx Now: No - Nursing Vital Signs Nursing Vital Signs: Initial Vital Signs Temperature 98.4 F 01/21/20 23:15 Pulse Rate 60 01/21/20 23:15 Respiratory Rate 18 01/21/20 23:15 Blood Pressure 94/47 01/21/20 23:15 O2 Sat by Pulse Oximetry 100 11/17/20 23:15 Pain Scale Pain Intensity 6 - Physical Exam General Appearance: no apparent distress, alert Eye Exam: PERRL/EOMI, eyes nml inspection Ears, Nose, Throat Exam: normal ENT inspection, TMs normal, pharynx normal, moist mucous membranes Neck Exam: normal inspection, non-tender, supple, full range of motion Respiratory Exam: normal breath sounds, lungs clear, No respiratory distress Cardiovascular Exam: regular rate/rhythm, normal heart sounds, normal peripheral pulses Gastrointestinal/Abdomen Exam: soft, normal bowel sounds, tenderness, other (Tenderness to palpation right upper quadrant. No signs of trauma. No signs of cellulitis erythema infection), No mass Back Exam: normal inspection, normal range of motion, No CVA tenderness, No vertebral tenderness Extremity Exam: normal inspection, normal range of motion, pelvis stable Neurologic Exam: alert, oriented x 3, cooperative, normal mood/affect, nml cerebellar function, nml station & gait, sensation nml, No motor deficits Skin Exam: normal color, warm, dry, No rash Lymphatic Exam: No adenopathy SpO2 Interpretation: normal SpO2: 100 O2 Delivery: Room Air - Course Nursing assessment & vital signs reviewed: Yes - CT Exams Abdomen/Pelvis CT Interpretation: Tele-radiologist Report (Negative for acute inflammatory process of the abdomen or pelvis. Evidence of cholecystectomy. Constipation.) Ordered Tests: Active Orders 24 hr Category Date Time Status EKG-ER Only STAT Care 01/21/20 23:15 Active IV Insertion STAT Care 01/21/20 23:15 Active ABDOMEN AND PELVIS W/0 CONTRAS [CT] Stat Exams 01/21/20 00:04 Taken CBC W DIFF Stat Lab 01/21/20 23:58 Completed CMP Stat Lab 01/21/20 23:58 Completed LIPASE Stat Lab 01/21/20 23:58 Completed TROPONIN Q3H Lab 01/21/20 00:00 Received TROPONIN Q3H Lab 01/22/20 02:15 Ordered TROPONIN Q3H Lab 01/22/20 05:15 Ordered TROPONIN Q3H Lab 01/22/20 08:15 Ordered TROPONIN Q3H Lab 01/22/20 11:15 Ordered UA W/RFX UR CULTURE Stat Lab 01/21/20 23:15 Ordered Medication Summary Discontinued Medications Generic Name Dose Route Start Last Admin Trade Name Freq PRN Reason Stop Dose Admin Droperidol 5 mg 01/21/20 23:25 01/21/20 23:55 Inapsine 5 Mg/2 Ml IV 01/21/20 23:26 5 mg STAT ONE Administration Droperidol Confirm 01/21/20 23:53 Inapsine 5 Mg/2 Ml Administered 01/21/20 23:54 Dose 5 mg .ROUTE .STK-MED ONE Sodium Chloride 1,000 mls @ 999 mls/hr 01/21/20 23:15 Sodium Chloride 0.9% 1000 Ml IV 01/22/20 00:15 .Q1H1M STA Lab/Rad Data: Laboratory Result Diagrams 01/21/20 23:58 01/21/20 23:58 Laboratory Results 01/21/20 01/21/20 Range/Units 23:58 23:58 WBC 13.7 H (4.0-10.5) K/mm3 RBC 4.19 (4.1-5.4) M/mm3 Hgb 13.1 (12.0-16.0) gm/dl Hct 38.5 (35-47) % MCV 91.9 (78-100) fl MCH 31.3 (26-32) pg MCHC 34.0 (32-36) g/dl RDW 14.4 H (11.5-14.0) % Plt Count 307 (150-450) K/mm3 MPV 10.3 (7.5-11.0) fl Gran % 75.2 H (36.0-66.0) % Eos # (Auto) 0.02 (0-0.5) Absolute Lymphs (auto) 2.56 (1.0-4.6) Absolute Monos (auto) 0.82 (0.0-1.3) Lymphocytes % 18.6 L (24.0-44.0) % Monocytes % 6.0 (0.0-12.0) % Eosinophils % 0.1 (0.00-5.0) % Basophils % 0.1 (0.0-0.4) % Absolute Granulocytes 10.33 H (1.4-6.9) Basophils # 0.01 (0-0.4) Sodium 133 L (137-145) mmol/L Potassium 4.8 (3.5-5.1) mmol/L Chloride 106 (98-107) mmol/L Carbon Dioxide 24 (22-30) mmol/L Anion Gap 8.9 (5-15) MEQ/L BUN 13 (7-17) mg/dL Creatinine 0.62 (0.52-1.04) mg/dL Estimated GFR > 60.0 ML/MIN Glucose 113 H (74-106) mg/dL Calcium 9.6 (8.4-10.2) mg/dL Total Bilirubin 0.30 (0.2-1.3) mg/dL AST 85 H (14-36) U/L ALT 63 H (0-35) U/L Alkaline Phosphatase 102 (38-126) U/L Serum Total Protein 6.9 (6.3-8.2) g/dL Albumin 4.2 (3.5-5.0) g/dL Lipase 574 H (23-300) U/L - Progress Progress: improved Progress Note: 01/22/20 00:32 Patient reassessed. Pain significantly improved. Lipase elevated at 574. Patient's pain may be stemming from a evolving pancreatitis. Patient advised hospitalization for additional pain control and observation. Patient declined. Patient is of sound mind. Patient understands that leaving AGAINST MEDICAL ADVICE can result in delayed diagnosis, worsening of symptoms, increased risk of morbidity mortality short and long-term disability including . In spite of her risks patient has decided to leave AGAINST MEDICAL ADVICE. Patient understand that she may return to our ED at any time for admission if she changes her mind. Otherwise patient agrees to follow-up with her primary care doctor within 48 hours for reevaluation. Patient requesting discharge. Patient voices no other complaints or concerns at this time. Counseled pt/family regarding: lab results, diagnosis, need for follow-up, rad results - Departure Departure Disposition: AMA Clinical Impression: Constipation, Abdominal pain, right upper quadrant, Elevated lipase Condition: Stable Critical Care Time: No Referrals: PRAVEENA KHAN [Primary Care Provider] - Additional Instructions: Discharge/Care Plan DAYBEN was seen on 01/22/20 in the Emergency Room. The patient was counseled regarding Diagnosis,Lab results, Imaging studies, need for follow up and when to return to the Emergency Room. Prescriptions given: Discharge Note I have spoken with the patient and/or caregivers. I have explained the patient's condition, diagnosis and treatment plan based on the information available to me at this time. I have answered the patient's and/or caregiver's questions and addressed any concerns. The patient and/or caregivers have as good understanding of the patient's diagnosis, condition and treatment plan as can be expected at t his point. The vital signs have been stable. The patient's condition is stable and appropriate for discharge from the emergency department. The patient will pursue further outpatient evaluation with the primary care physician or other designated or consulting physician as outlined in the discharge instructions. The patient and/or caregivers are agreeable to this plan of care and follow-up instructions have been explained in detail. The patient and/or caregivers have received these instruction. The patient/and or caregivers are aware that any significant change in condition or worsening of symptoms should prompt an immediate return to this or the closest emergency department or call 911.
[2020-01-21] MEDS ORDERED: Inapsine 5 MG/2 ML ONE (23:53)
[2020-01-22 00:01] LABS: Absolute Neutrophil Ct (ANC) 10.33 (1.4-6.9); BASOPHIL % 0.1 % (0.0-0.4); Basophil (Absolute #) 0.01 (0-0.4); Eosinophil % 0.1 % (0.00-5.0); Eosinophil (Absolute #) 0.02 (0-0.5); Hematocrit 38.5 % (35-47); Hemoglobin 13.1 gm/dl (12.0-16.0); Lymphocyte (Absolute #) 2.56 (1.0-4.6); Lymphocytes % 18.6 % (24.0-44.0); Mean Cell Volume 91.9 fl (78-100); Mean Corpuscular Hemoglobin 31.3 pg (26-32); Mean Platelet Volume 10.3 fl (7.5-11.0); Monocyte (Absolute #) 0.82 (0.0-1.3); Neutrophil % 75.2 % (36.0-66.0); Platelet Count 307 K/mm3 (150-450); Red Blood Count 4.19 M/mm3 (4.1-5.4); Red Cell Distribution Width 14.4 % (11.5-14.0); White Blood Count 13.7 K/mm3 (4.0-10.5)
[2020-01-22 00:14] LABS: ALBUMIN 4.2 g/dL (3.5-5.0); ALKALINE PHOSPHATASE 102 U/L (38-126); ANION GAP 8.9 MEQ/L (5-15); BLOOD UREA NITROGEN 13 mg/dL (7-17); CHLORIDE 106 mmol/L (98-107); Calcium 9.6 mg/dL (8.4-10.2); Carbon Dioxide 24 mmol/L (22-30); Creatinine 1 0.62 mg/dL (0.52-1.04); EST GLOMERULAR FILTRATION RATE > 60.0 ML/MIN; Glucose 113 mg/dL (74-106); LIPASE 574 U/L (23-300); Potassium 4.8 mmol/L (3.5-5.1); SGOT/AST 85 U/L (14-36); SGPT/ALT 63 U/L (0-35); SODIUM 133 mmol/L (137-145); Total Protein 6.9 g/dL (6.3-8.2)
[2020-01-22 00:54] VITALS: BP 99/53; PULSE 65
--- NOTE | 2020-01-22 08:43 | XRAY ---
Indication: Right abdomen pain and nausea. Multiple contiguous axial images obtained through the abdomen and pelvis without contrast as ordered. Comparison: June 11, 2012. Lung bases are clear. Heart is not enlarged. Noncontrasted stomach and bowel loops appear nonobstructed. Normal appendix. There is again mild diffuse scattered colonic fecal debris throughout. Again previous cholecystectomy. No free fluid/air. Remaining liver, pancreas, spleen, adrenal glands, kidneys, ureters, bladder, and uterus appear unremarkable for noncontrast exam. Minimal aortic calcifications without AAA. Osseous structures intact. No ventral or inguinal hernias. Impression: 1. Again mild diffuse fecal stasis. 2. Remaining CT abdomen/pelvis without contrast exam is negative. Comment: Preliminary interpretation was made by [facility]. No critical discrepancy.
== END 2020-01-22 00:53 | disposition left against medical advice (07) ==
LOC: ED 23:13
DX: K59.00 Constipation, unspecified (principal); R10.11 Right upper quadrant pain; R74.8 Abnormal levels of other serum enzymes; R11.2 Nausea with vomiting, unspecified; R11.10 Vomiting, unspecified; R19.7 Diarrhea, unspecified
CPT/HCPCS: 36415; 74176; 80053; 83690; 84484; 85025; 96372; 99284

== ENCOUNTER 2022-12-27 18:55 | Emergency (ER) | payer OTHER ==
[2022-12-27 19:04] VITALS: TEMP 97.1
--- NOTE | 2022-12-27 19:18 | ERPHSYRPT ---
- History of Present Illness Time Seen by Provider: 12/27/22 19:14 Historian: patient Exam Limitations: no limitations Patient Subjective Stated Complaint: C/O Chest pain (right sided) that started yesterday evening while driving. Patient states she has a constant dull ache that she rates as a #6 with intermittent sharp pains that she rates as a #10. Triage Nursing Assessment: Patient ambulated back to ER without difficulties. No SOB. No cough. She is alert and oriented. GUAJARDO WNL. Skin tone normal. NO edema. Physician History: Patient is a 47-year-old female with a history of arterial clot is supposed to be on a blood thinner but has independently decided to discontinue her blood thinner presents to our ED for evaluation of right-sided chest pain that started acutely yesterday while driving. Pain rated 6 out of 10. Pain worse with inspiration. Patient is a smoker. No trauma no fever. No nausea vomiting or diaphoresis. Symptoms are constant. Symptoms are moderate in intensity. Pain improved with rest and worsens with deep inspiration. Patient voices no other complaints or concerns at this time. Portions of this note were created with voice recognition technology. There may be grammatical, spelling, punctuation or sound alike errors Timing/Duration: yesterday Activities at Onset: none Quality: aching Location: other (Right chest) Chest Pain Radiation: no radiation Severity of Pain-Max: moderate Severity of Pain-Current: mild Modifying Factors: Improves With: other (Deep breath) Associated Symptoms: denies symptoms Prior Chest Pain/Cardiac Workup: no prior chest pain Nitro Today/Relief: no nitro taken today Aspirin Treatment Today: no aspirin today Allergies/Adverse Reactions: strawberry [[place]] Allergy (Severe, Verified 12/27/22 18:57) Hives swollen throat hydrocodone bitartrate [From Vicodin] Allergy (Mild, Verified 12/27/22 18:57) Vomiting ketorolac tromethamine [From Toradol] Allergy (Mild, Verified 12/27/22 18:57) Hives Penicillins Allergy (Mild, Verified 12/27/22 18:57) pineapple [Pineapple] Allergy (Mild, Verified 12/27/22 18:57) Diarrhea prochlorperazine edisylate [From Compazine] Allergy (Mild, Verified 12/27/22 18:57) Diarrhea psychosis sumatriptan [From Imitrex] Allergy (Mild, Verified 12/27/22 18:57) Vomiting tramadol HCl [From Ultram] Allergy (Mild, Verified 12/27/22 18:57) Hives oysters Allergy (Severe, Uncoded 12/27/22 18:57) Hives swollen throat Home Medications: No Reportable Medications [No Reported Medications] 01/21/20 [History] Hx Tetanus, Diphtheria Vaccination/Date Given: Yes Hx Influenza Vaccination/Date Given: No Hx Pneumococcal Vaccination/Date Given: No Immunizations Up to Date: Yes Travel Risk - International Travel Have you traveled outside of the country in past 3 weeks: No - Coronavirus Screening Are you exhibiting any of the following symptoms?: No Close contact with a COVID-19 positive Pt in past 14-21 Days: No - Vaccine Status Have you recieved a Covid-19 vaccination: No - Review of Systems Constitutional: No Symptoms, No Fever, No Chills Eyes: No Symptoms Ears, Nose, & Throat: No Symptoms Respiratory: No Symptoms, No Cough, No Dyspnea Cardiac: No Symptoms, No Chest Pain, No Edema, No Syncope Abdominal/Gastrointestinal: No Symptoms, No Abdominal Pain, No Nausea, No Vomiting, No Diarrhea Genitourinary Symptoms: No Symptoms, No Dysuria Musculoskeletal: No Symptoms, No Back Pain, No Neck Pain Skin: No Symptoms, No Rash Neurological: No Symptoms, No Dizziness, No Focal Weakness, No Sensory Changes Psychological: No Symptoms Endocrine: No Symptoms Hematologic/Lymphatic: No Symptoms Immunological/Allergic: No Symptoms All Other Systems: Reviewed and Negative - Past Medical History Pertinent Past Medical History: Yes Neurological History: Migraines ENT History: No Pertinent History Cardiac History: Deep Vein Thrombosis Respiratory History: No Pertinent History Endocrine Medical History: No Pertinent History Musculoskeletal History: No Pertinent History GI Medical History: GERD, Gallbladder Disease, Other History: No Pertinent History Psycho-Social History: No Pertinent History Female Reproductive Disorders: Other Other Medical History: peripheral blockage of the L arm, uterine ablasion, anemia, pt reports possibly had a stroke. Acid reflux. - Past Surgical History Past Surgical History: Yes Neuro Surgical History: No Pertinent History Cardiac: No Pertinent History Respiratory: No Pertinent History Gastrointestinal: Cholecystectomy Genitourinary: No Pertinent History Musculoskeletal: Orthopedic Surgery, Other Female Surgical History: Section, Other Other Surgical History: BLOOD CLOT REMOVAL, ABLATION, left foot surgery - Social History Smoking Status: Current every day smoker How long have you smoked: 31 yrs Exposure to second hand smoke: Yes Drug Use: marijuana Patient Lives Alone: No - Female History Hx Last Menstrual Period: No longer has them Hx Now: No - Nursing Vital Signs Nursing Vital Signs: Initial Vital Signs Temperature 97.1 F 12/27/22 18:56 Pulse Rate 83 12/27/22 18:56 Respiratory Rate 20 12/27/22 18:56 Blood Pressure 101/81 12/27/22 18:56 O2 Sat by Pulse Oximetry 99 12/27/22 18:56 Pain Scale Pain Intensity 6 - Physical Exam General Appearance: no apparent distress, alert Eye Exam: PERRL/EOMI, eyes nml inspection Ears, Nose, Throat Exam: normal ENT inspection, TMs normal, pharynx normal, moist mucous membranes Neck Exam: normal inspection, non-tender, supple, full range of motion Respiratory Exam: normal breath sounds, lungs clear, airway intact, No respiratory distress Cardiovascular Exam: regular rate/rhythm, normal heart sounds, normal peripheral pulses Gastrointestinal/Abdomen Exam: soft, No tenderness, No mass Back Exam: normal inspection, normal range of motion, No CVA tenderness, No vertebral tenderness Extremity Exam: normal inspection, normal range of motion Neurologic Exam: alert, oriented x 3, cooperative, normal mood/affect, sensation nml, No motor deficits Skin Exam: normal color, warm, dry SpO2 Interpretation: normal SpO2: 99 O2 Delivery: Room Air - Course Nursing assessment & vital signs reviewed: Yes EKG Interpreted by Me: RATE (84), Sinus Rhythm, NORMAL AXIS, NORMAL INTERVALS - CT Exams Chest CT Interpretation: Tele-radiologist Report (Compared to 10/02/2013 negative for PE new small hiatal hernia) Ordered Tests: Active Orders 24 hr Category Date Time Status Compounding Technician STAT Care 12/27/22 19:10 Active EKG-ER Only STAT Care 12/27/22 19:09 Active IV Insertion STAT Care 12/27/22 19:09 Active Pulse Oximetry (ED) STAT Care 12/27/22 19:09 Active CHEST WITH CONTRAST [CT] Stat Exams 12/27/22 19:11 Taken CBC W DIFF Stat Lab 12/27/22 19:10 Completed CMP Stat Lab 12/27/22 19:10 Completed TROPONIN Q4H Lab 12/27/22 19:10 Completed TROPONIN Q4H Lab 12/27/22 22:20 Completed TROPONIN Q4H Lab 12/28/22 03:15 Ordered Medication Summary Generic Name Dose Route Start Last Admin Trade Name Isaac PRN Reason Stop Dose Admin Ketamine HCl 5 mg 12/27/22 23:15 Ketamine Hcl 50 Mg/Ml IV 12/27/22 23:16 STAT ONE Lab/Rad Data: Laboratory Result Diagrams 12/27/22 19:10 12/27/22 19:10 Laboratory Results 12/27/22 12/27/22 12/27/22 Range/Units 22:20 19:10 19:10 WBC (4.0-10.5) x10^3/uL RBC (4.1-5.4) x10^6/uL Hgb (12.0-16.0) g/dL Hct (35-47) % MCV (78-100) fL MCH (26-32) pg MCHC (32-36) g/dL RDW (11.5-14.0) % Plt Count (150-450) x10^3/uL MPV (7.5-11.0) fL Gran % (36.0-66.0) % Immature Gran % (Auto) (0.00-0.4) % Nucleat RBC Rel Count (0.00-0.1) % Eos # (Auto) (0-0.5) x10^3/uL Immature Gran # (Auto) (0.00-0.03) x10^3u/L Absolute Lymphs (auto) (1.0-4.6) x10^3/uL Absolute Monos (auto) (0.0-1.3) x10^3/uL Absolute Nucleated RBC (0.00-0.01) x10^3u/L Lymphocytes % (24.0-44.0) % Monocytes % (0.0-12.0) % Eosinophils % (0.00-5.0) % Basophils % (0.0-0.4) % Absolute Granulocytes (1.4-6.9) x10^3/uL Basophils # (0-0.4) x10^3/uL Sodium 135 L (137-145) mmol/L Potassium 4.0 (3.5-5.1) mmol/L Chloride 103 (98-107) mmol/L Carbon Dioxide 24 (22-30) mmol/L Anion Gap 12.4 (5-15) MEQ/L BUN 16 (7-17) mg/dL Creatinine 0.75 (0.52-1.04) mg/dL Estimated GFR > 60.0 ML/MIN Glucose 84 (74-106) mg/dL Calcium 8.8 (8.4-10.2) mg/dL Total Bilirubin 0.40 (0.2-1.3) mg/dL AST 37 H (14-36) U/L ALT 21 (0-35) U/L Alkaline Phosphatase 79 (38-126) U/L Troponin I < 0.012 < 0.012 (0.000-0.034) ng/mL Serum Total Protein 7.2 (6.3-8.2) g/dL Albumin 4.3 (3.5-5.0) g/dL 12/27/22 Range/Units 19:10 WBC 8.4 (4.0-10.5) x10^3/uL RBC 4.09 L (4.1-5.4) x10^6/uL Hgb 12.4 (12.0-16.0) g/dL Hct 37.4 (35-47) % MCV 91.4 (78-100) fL MCH 30.3 (26-32) pg MCHC 33.2 (32-36) g/dL RDW 13.6 (11.5-14.0) % Plt Count 251 (150-450) x10^3/uL MPV 10.4 (7.5-11.0) fL Gran % 75.9 H (36.0-66.0) % Immature Gran % (Auto) 0.1 (0.00-0.4) % Nucleat RBC Rel Count 0.0 (0.00-0.1) % Eos # (Auto) 0.07 (0-0.5) x10^3/uL Immature Gran # (Auto) 0.01 (0.00-0.03) x10^3u/L Absolute Lymphs (auto) 1.37 (1.0-4.6) x10^3/uL Absolute Monos (auto) 0.56 (0.0-1.3) x10^3/uL Absolute Nucleated RBC 0.00 (0.00-0.01) x10^3u/L Lymphocytes % 16.3 L (24.0-44.0) % Monocytes % 6.7 (0.0-12.0) % Eosinophils % 0.8 (0.00-5.0) % Basophils % 0.2 (0.0-0.4) % Absolute Granulocytes 6.36 (1.4-6.9) x10^3/uL Basophils # 0.02 (0-0.4) x10^3/uL Sodium (137-145) mmol/L Potassium (3.5-5.1) mmol/L Chloride (98-107) mmol/L Carbon Dioxide (22-30) mmol/L Anion Gap (5-15) MEQ/L BUN (7-17) mg/dL Creatinine (0.52-1.04) mg/dL Estimated GFR ML/MIN Glucose (74-106) mg/dL Calcium (8.4-10.2) mg/dL Total Bilirubin (0.2-1.3) mg/dL AST (14-36) U/L ALT (0-35) U/L Alkaline Phosphatase (38-126) U/L Troponin I (0.000-0.034) ng/mL Serum Total Protein (6.3-8.2) g/dL Albumin (3.5-5.0) g/dL - Progress Progress: improved Air Movement: good Progress Note: Patient is a 47-year-old female presents to our ED with pleuritic chest pain. Physical exam nonremarkable. EKG normal sinus rhythm. CT chest negative for PE. CBC CMP troponin x2 all negative. Patient received a dose of IV ketamine for pain control. Patient advised that patient's pain started after she was trying to turn a steering wheel without power steering. Patient's pain is reproduced with palpation to her chest wall. It is likely patient's chest pain is musculoskeletal in nature. No indication for further work-up. Will discharge home. Patient agrees to follow-up with her primary care doctor within 48 hours for reevaluation. Portions of this note were created with voice recognition technology. There may be grammatical, spelling, punctuation or sound alike errors Complexity of problems addressed is moderate acute complicated No critical care time Complex of data reviewed and analyzed is moderate. Test ordered test reviewed. Results were analyzed and clinically correlated with history and physical examination. Risk of complication and or risk of morbidity/mortality patient management is low. Patient agrees to follow-up with her primary care doctor within 48 hours for reevaluation. 12/27/22 23:18 Blood Culture(s) Obtained: No Antibiotics given: No Counseled pt/family regarding: lab results, diagnosis, need for follow-up, rad results - Departure Departure Disposition: Home Clinical Impression: Hiatal hernia, Chest pain, Chest wall pain Condition: Stable Critical Care Time: No Referrals: PRAVEENA KHAN [Primary Care Provider] - Follow up/PCP as directed Additional Instructions: Discharge/Care Plan DAY,BEN RESTREPO was seen on 12/27/22 in the Emergency Room. The patient was counseled regarding Diagnosis,Lab results, Imaging studies, need for follow up and when to return to the Emergency Room. Prescriptions given: Discharge Note I have spoken with the patient and/or caregivers. I have explained the patient's condition, diagnosis and treatment plan based on the information available to me at this time. I have answered the patient's and/or caregiver's questions and addressed any concerns. The patient and/or caregivers have as good understanding of the patient's diagnosis, condition and treatment plan as can be expected at this point. The vital signs have been stable. The patient's condition is stable and appropriate for discharge from the emergency department. The patient will pursue further outpatient evaluation with the primary care physician or other designated or consulting physician as outlined in the discharge instructions. The patient and/or caregivers are agreeable to this plan of care and follow-up instructions have been explained in detail. The patient and/or caregivers have received these instruction. The patient/and or caregivers are aware that any significant change in condition or worsening of symptoms should prompt an immediate return to this or the closest emergency department or call 911.
[2022-12-27 19:43] LABS: Absolute Neutrophil Ct (ANC) 6.36 x10^3/uL (1.4-6.9); BASOPHIL % 0.2 % (0.0-0.4); Basophil (Absolute #) 0.02 x10^3/uL (0-0.4); Eosinophil % 0.8 % (0.00-5.0); Eosinophil (Absolute #) 0.07 x10^3/uL (0-0.5); Hematocrit 37.4 % (35-47); Hemoglobin 12.4 g/dL (12.0-16.0); IMMATURE GRAN # 0.01 x10^3u/L (0.00-0.03); IMMATURE GRAN % 0.1 % (0.00-0.4); Lymphocyte (Absolute #) 1.37 x10^3/uL (1.0-4.6); Lymphocytes % 16.3 % (24.0-44.0); Mean Cell Volume 91.4 fL (78-100); Mean Corpuscular Hemoglobin 30.3 pg (26-32); Mean Corpuscular Hgb Concent. 33.2 g/dL (32-36); Mean Platelet Volume 10.4 fL (7.5-11.0); Monocyte (Absolute #) 0.56 x10^3/uL (0.0-1.3); Monocytes % 6.7 % (0.0-12.0); Neutrophil % 75.9 % (36.0-66.0); Platelet Count 251 x10^3/uL (150-450); Red Blood Count 4.09 x10^6/uL (4.1-5.4); Red Cell Distribution Width 13.6 % (11.5-14.0); White Blood Count 8.4 x10^3/uL (4.0-10.5)
[2022-12-27 19:58] LABS: ALBUMIN 4.3 g/dL (3.5-5.0); ALKALINE PHOSPHATASE 79 U/L (38-126); ANION GAP 12.4 MEQ/L (5-15); BLOOD UREA NITROGEN 16 mg/dL (7-17); CHLORIDE 103 mmol/L (98-107); Calcium 8.8 mg/dL (8.4-10.2); Carbon Dioxide 24 mmol/L (22-30); Creatinine 1 0.75 mg/dL (0.52-1.04); EST GLOMERULAR FILTRATION RATE > 60.0 ML/MIN; Glucose 84 mg/dL (74-106); SGOT/AST 37 U/L (14-36); SGPT/ALT 21 U/L (0-35); SODIUM 135 mmol/L (137-145); Total Protein 7.2 g/dL (6.3-8.2)
[2022-12-27 23:10] VITALS: O2SAT 99
[2022-12-27] MEDS ORDERED: Ketamine HCl 50 MG/ML IV ONE (23:15)
[2022-12-27 23:18] VITALS: RESP 17
[2022-12-27 23:42] VITALS: BP 105/67; PULSE 90
--- NOTE | 2022-12-28 08:56 | XRAY ---
Indication: Chest pain. Multiple contiguous axial images obtained through the chest using 80 cc Isovue 370 contrast and PE protocol. Comparison: October 02, 2013 Good opacification of the pulmonary arteries to include the lobar and segmental branches. No pulmonary embolus. Heart is not enlarged. Aorta is normal in course and caliber. No pathologic mediastinal/hilar lymphadenopathy. New small hiatal hernia. Lungs inflated and clear. Bony thorax intact. Limited upper abdomen including adrenal glands are unremarkable. Impression: Continued negative pulmonary embolus. No new/acute cardiopulmonary abnormalities. New small hiatal hernia.
== END 2022-12-27 23:45 | disposition home or self-care (01) ==
LOC: ED 18:55
DX: R07.89 Other chest pain (principal); R07.9 Chest pain, unspecified; K44.9 Diaphragmatic hernia without obstruction or gangrene; Z86.718 Personal history of other venous thrombosis and embolism; Z28.310 Unvaccinated for COVID-19; Z72.0 Tobacco use
CPT/HCPCS: 36000; 36415; 71260; 80053; 84484; 85025; 93005; 93041; 94760; 96374; 99284